=== PATIENT | male | born 1985 | race Caucasian/White ===

== ENCOUNTER 2018-04-10 02:32 | Emergency (ER) | payer OTHER ==
[~2018-04-10] VITALS: Ht 177.8 cm; Wt 95.3 kg
[2018-04-10 02:51] LABS: URINE BILIRUBIN NEGATIVE (Negative); URINE BLOOD TRACE (Negative); URINE CLARITY CLEAR; URINE COLOR YELLOW; URINE GLUCOSE-RANDOM* NEGATIVE (Negative); URINE KETONES NEGATIVE (Negative); URINE LEUKOCYTES-REFLEX NEGATIVE (Negative); URINE NITRITE-REFLEX NEGATIVE (Negative); URINE PROTEIN (DIPSTICK) NEGATIVE (Negative); URINE SPECIFIC GRAVITY 1.025 (1.005-1.035); URINE UROBILINOGEN 0.2 E.U./dl (0.2-1.0)
[2018-04-10 02:58] LABS: ABSOLUTE NEUTROPHILS 2.6 thou/uL (1.4-8.2); BASOPHILS 0.6 % (0.0-2.0); EOSINOPHILS 2.1 % (0.0-3.0); HEMATOCRIT 45.5 % (42.0-52.0); LYMPHOCYTES 53.2 % (24.0-44.0); MCH 28.7 pg (26.0-34.0); MCHC 35.1 g/dL (28.0-37.0); MCV 81.8 fL (80.0-100.0); MONOCYTES 7.8 % (1.0-8.0); PLATELET COUNT 233 thou/uL (150-400); POLYS 36.3 % (36.0-66.0); RBC 5.56 mil/uL (4.50-6.00); RDW 12.4 % (10.5-14.5); WBC 7.3 thou/uL (4.0-11.0)
[2018-04-10] MEDS ORDERED: ZOFRAN4 MG PO ×2 (03:11→03:13)
[2018-04-10 03:12] LABS: CALCIUM 9.4 mg/dL (8.5-10.1); CREATININE 0.9 mg/dL (0.7-1.3); POTASSIUM 3.7 mmol/L (3.5-5.1)
[2018-04-10 03:18] LABS: TOTAL BILIRUBIN 0.4 mg/dL (<0.1-1.0); TOTAL PROTEIN 7.2 g/dL (6.4-8.2)
[2018-04-10 03:44] VITALS: BP 126/72
== END 2018-04-10 03:46 | disposition home or self-care (01) ==
LOC: ER 02:32
PROVIDERS: Emergency Medicine
DX: R10.9 Unspecified abdominal pain (principal); R11.2 Nausea with vomiting, unspecified; K21.9 Gastro-esophageal reflux disease without esophagitis; F17.220 Nicotine dependence, chewing tobacco, uncomplicated

== ENCOUNTER 2019-10-08 16:06 | Emergency (ER) | payer BC ==
[~2019-10-08] VITALS: Ht 177.8 cm; Wt 97.5 kg
[~2019-10-08 16:06] MED LIST: ZOFRAN4 MG PO
[2019-10-08] MEDS ORDERED: SERTRALINE HCL100 MG PO (16:11)
[2019-10-08 18:13] VITALS: BP 121/77
== END 2019-10-08 18:14 | disposition home or self-care (01) ==
LOC: ER 16:06
DX: S81.811A Laceration without foreign body, right lower leg, initial encounter (principal); Z23 Encounter for immunization; K21.9 Gastro-esophageal reflux disease without esophagitis; F17.220 Nicotine dependence, chewing tobacco, uncomplicated; Z79.899 Other long term (current) drug therapy; Z88.1 Allergy status to other antibiotic agents; W26.8XXA Contact with other sharp object(s), not elsewhere classified, initial encounter; Y93.89 Activity, other specified; Y92.89 Other specified places as the place of occurrence of the external cause; Y99.8 Other external cause status

== ENCOUNTER 2020-05-03 08:22 | Emergency (ER) | payer BC, OTHER ==
[~2020-05-03] VITALS: Ht 177.8 cm; Wt 97.5 kg
[~2020-05-03 08:22] MED LIST changes: +SERTRALINE HCL100 MG PO
[2020-05-03 08:46] LABS: ABSOLUTE NEUTROPHILS 2.7 thou/uL (1.4-8.2); BASOPHILS 0.6 % (0.0-2.0); EOSINOPHILS 1.7 % (0.0-3.0); HEMATOCRIT 46.3 % (42.0-52.0); HEMOGLOBIN 15.5 gm/dL (14.0-18.0); LYMPHOCYTES 39.8 % (24.0-44.0); MCH 29.4 pg (26.0-34.0); MCHC 33.4 g/dL (28.0-37.0); MCV 87.8 fL (80.0-100.0); MONOCYTES 7.4 % (1.0-8.0); PLATELET COUNT 188 thou/uL (150-400); POLYS 50.5 % (36.0-66.0); RBC 5.27 mil/uL (4.50-6.00); RDW 12.3 % (10.5-14.5); WBC 5.3 thou/uL (4.0-11.0)
[2020-05-03 08:56] LABS: ANION GAP 9 mmol/L (7-16); BUN 20 mg/dL (7-18); CALCIUM 8.9 mg/dL (8.5-10.1); CHLORIDE 104 mmol/L (98-107); CO2 28 mmol/L (21-32); CREATININE 0.8 mg/dL (0.7-1.3); GLUCOSE 103 mg/dL (74-106); POTASSIUM 3.8 mmol/L (3.5-5.1); SODIUM 141 mmol/L (136-145)
[2020-05-03 09:07] LABS: ALBUMIN 3.9 g/dL (3.4-5.0); DIRECT BILIRUBIN < 0.1 mg/dL (<0.1-0.2); SGOT 29 U/L (15-37); SGPT 60 U/L (16-63); TOTAL BILIRUBIN 0.4 mg/dL (0.2-1.0); TOTAL PROTEIN 6.9 g/dL (6.4-8.2); TROPONIN-I <0.06 ng/mL (<0.06)
[2020-05-03] MEDS ORDERED: ATIVAN0.5 M1 PO (10:31)
[2020-05-03 10:35] VITALS: BP 131/61
--- NOTE | 2020-05-03 13:25 | EKG ---
[place] [id number] [place] [address] ELECTROCARDIOGRAM REPORT Name: KIARA MEJIA Room #: [facility] [id number] Admission: 05/03/20 Attend Phys: Discharge: 05/03/20 Date of : 85 Report #: [id number] [facility] ED Test Date: 2020-05-03 Test Time: 08:21:21 Pat Name: KIARA MEJIA Department: Room: Gender: [employer]: AG : 1985 Requested By: Christiano Benson Order Number: [id number] MD: Jere Sawyer Measurements Intervals [place] Rate: 75 P: 62 AR: 186 QRS: 13 QRSD: 116 T: 10 QT: 364 QTc: 407 Interpretive Statements Sinus rhythm Probable left atrial enlargement Incomplete right bundle branch block No previous ECG available for comparison Electronically Signed On 05-03-2020 13:25:33 [employer] by Jere Sawyer [email or web address] <ELECTRONICALLY SIGNED> By: Jere Sawyer MD, [facility] 05/03/20 1325 0821 0 Jere Sawyer MD, FACC /EPI
== END 2020-05-03 10:35 | disposition home or self-care (01) ==
LOC: ER 08:22
PROVIDERS: Emergency Medicine
DX: F41.9 Anxiety disorder, unspecified (principal); R00.2 Palpitations; K21.9 Gastro-esophageal reflux disease without esophagitis; Z79.899 Other long term (current) drug therapy; Z88.1 Allergy status to other antibiotic agents